=== PATIENT | female | born 1965 | race Caucasian/White ===

== ENCOUNTER 2019-07-02 12:22 | Emergency (ER) | payer SELFPAY ==
--- NOTE | 2019-07-02 15:12 | Event Note ---
ED Screening Note Date of service: 07/02/19 Time: 15:06 ED Screening Note: 54 y o female presents with left foot pain radiating upwards to back of leg and thigh x 3 days no injuries, no trauma swelling to ankles admits abd pain denies PMH no trauma This initial assessment/diagnostic orders/clinical plan/treatment(s) is/are subject to change based on patients health status, clinical progression and re- assessment by fellow clinical providers in the ED. Further treatment and workup at subsequent clinical providers discretion. Patient/guardian urged not to elope from the ED as their condition may be serious if not clinically assessed and managed. Initial orders include: US doppler d-dimer
--- NOTE | 2019-07-02 16:49 | Vascular Lab Report ---
DUPLEX DOPPLER LOWER EXTREMITY VEINS, LEFT INDICATION: Left lower extremity pain and swelling for 4 days. TECHNIQUE: Duplex doppler imaging was performed through the veins of the left lower extremity using venous compr ession and other maneuvers. COMPARISON: No relevant prior imaging study available. FINDINGS: Common Femoral vein: Negative. Superficial Femoral vein: Negative. Popliteal vein: Negative. Calf veins: Negative. Additional findings: None. IMPRESSION: 1. No sonographic evidence for DVT in the left lower extremity. Signer Name: Rodrigo Palacio MD Signed: 07/02/2019 4:45 PM Workstation Name: [id number]
--- NOTE | 2019-07-02 19:04 | Emergency Department Report ---
ED Extremity Problem HPI - General Chief complaint: Extremity Injury, Lower Stated complaint: LT LEG PAIN Time Seen by Provider: 07/02/19 18:52 Source: patient Mode of arrival: Ambulatory Limitations: Language Barrier - History of Present Illness Initial comments: 54 y/o female comes in for left lower extremity pain times 4 days. Reports that pain has gotten worst today. She reports that she has a black spot on the top of her left foot. Patient denies any injury. She states pain starts in the foot and travels up. She has no PMH and takes no medication daily. She has an allergy to PCN. MD Complaint: extremity pain Location: left, lower extremity History of Same: No -: Yes myalgia Severity scale (0 -10): 8 Quality: aching, sharp Consistency: intermittent Improves with: nothing Worsens with: walking, palpation Associated Symptoms: denies other symptoms - Related Data Previous Rx's Medication Instructions Recorded Last Taken Type Clindamycin [Clindamycin CAP] 300 mg PO Q8H #30 cap 07/02/19 Unknown Rx Naproxen 500 mg PO BID PRN #20 tablet 07/02/19 Unknown Rx Allergies Allergy/AdvReac Type Severity Reaction Status Date / Time Penicillins Allergy Itching Verified 07/02/19 12:24 ED Review of Systems ROS: Stated complaint: LT LEG PAIN Other details as noted in HPI ED Past Medical Hx - Past Medical History Previous Medical History?: No - Surgical History Past Surgical History?: No - Social History Smoking Status: Never Smoker - Medications Home Medications: Home Medications Medication Instructions Recorded Confirmed Last Taken Type Clindamycin [Clindamycin CAP] 300 mg PO Q8H #30 cap 07/02/19 Unknown Rx Naproxen 500 mg PO BID PRN #20 tablet 07/02/19 Unknown Rx ED Physical Exam - General Limitations: Language Barrier General appearance: alert, in no apparent distress - Head Head exam: Present: atraumatic, normocephalic - Eye Eye exam: Present: normal appearance - ENT ENT exam: Present: mucous membranes moist - Neurological Exam Neurological exam: Present: alert, oriented X3, normal gait - Psychiatric Psychiatric exam: Present: normal affect, normal mood - Skin Skin exam: Present: warm, dry, intact, normal color. Absent: rash ED Course Vital Signs 07/02/19 07/02/19 15:10 19:15 Temperature 98.3 F Pulse Rate 75 Respiratory 17 18 Rate Blood Pressure 128/80 O2 Sat by Pulse 100 Oximetry ED Medical Decision Making - Radiology Data Radiology results: report reviewed Patient: DONG SONG MR#: [id number] : 1965 Acct:[id number] Age/Sex: 54 / F ADM Date: 07/02/19 Loc: ED Attending Dr: Ordering Physician: NADER LE Date of Service: 07/02/19 Procedure(s): VL venous duplex LE LT Accession Number(s): [id number] cc: NADER LE DUPLEX DOPPLER LOWER EXTREMITY VEINS, LEFT INDICATION: Left lower extremity pain and swelling for 4 days. TECHNIQUE: Duplex doppler imaging was performed through the veins of the left lower extrem ity using venous compression and other maneuvers. COMPARISON: No relevant prior imaging study available. FINDINGS: Common Femoral vein: Negative. Superficial Femoral vein: Negative. Popliteal vein: Negative. Calf veins: Negative. Additional findings: None. IMPRESSION: 1. No sonographic evidence for DVT in the left lower extremity. Signer Name: Rodrigo Palacio MD Signed: 07/02/2019 4:45 PM Workstation Name: [id number] Transcribed By: MN Dictated By: Rodrigo Palacio MD Electronically Authenticated By: Rodrigo Palacio MD Signed Date/Time: 07/02/191644 DD/ 44 TD/TT: - Medical Decision Making 54 y/o female comes in for left lower extremity pain times 4 days. Reports that pain has gotten worst today. She reports that she has a black spot on the top of her left foot. Patient denies any injury. She states pain starts in the foot and travels up. She has no PMH and takes no medication daily. She has an allergy to PCN. Will place patient on clindamycin and naproxen. Critical care attestation.: If time is entered above; I have spent that time in minutes in the direct care of this critically ill patient, excluding procedure time. ED Disposition Clinical Impression: Pain in left lower leg, Foot pain, left, Cellulitis Disposition: TO HOME OR SELFCARE Is pt being admited?: No Does the pt Need Aspirin: No Condition: Stable Prescriptions: Clindamycin [Clindamycin CAP] 300 mg PO Q8H #30 cap Naproxen 500 mg PO BID PRN #20 tablet PRN Reason: Pain , Severe (7-10) Referrals: [facility] [Outside] - 3-5 Days Print Language: WELSH
[2019-07-02] MEDS ORDERED: IBUPROFEN 600 MG TAB PO ONE (19:05)
[2019-07-02 19:39] VITALS: BP 118/78
== END 2019-07-02 20:05 | disposition home or self-care (01) ==
LOC: ED 12:22
DX: L03.116 Cellulitis of left lower limb (principal)
CPT/HCPCS: 36415; 85379